=== PATIENT | female | born 1995 | race Caucasian/White ===

== ENCOUNTER 2020-10-14 13:51 | Outpatient (CLI) | payer OTHER, SELFPAY ==
--- NOTE | ~2020-10-14 | US_ITS ---
EXAMINATION: US OB <= 14 weeks fetus DATE: 10/14/2020 14:24 INDICATION: First trimester dating TECHNIQUE: Real-time pelvic transabdominal ultrasound was performed. COMPARISON: None. FINDINGS: The uterus measures 7.9 x 6.1 x 6.4 cm. There is an intrauterine gestational sac. A yolk s ac is identified. heart motion is identified measuring 184 beats per minute (bpm) by M-mode Dop pler. The crown rump length measures 2.2 cm , which correlates with an estimated gestational ag e of 8 weeks and 6 day(s) (+/-) 6 day(s). The left ovary is not visualized however no left adnexal abnormality is seen. The right ovary measure s 3.9 x 2.9 x 3.4 cm. There is normal vascular flow in the right ovary. There is no free fluid in the pelvis. IMPRESSION: 1. Live intrauterine with an estimated gestational age of 8 weeks and 6 day(s) (+/-) 6 day( s) and an estimated delivery date of 05/20/2021. Reviewed, dictated and finalized at location A. IMPRESSION: 1. Live intrauterine with an estimated gestational age of 8 weeks and 6 day(s) (+/-) 6 day(s) and an estimated delivery date of 05/20/2021.
== END 2020-10-14 13:52 | disposition home or self-care (01) ==
PROVIDERS: Visit Provider Obstetrics & Gynecology
DX: Z34.91 Encounter for supervision of normal pregnancy, unspecified, first trimester (principal); Z3A.01 Less than 8 weeks gestation of pregnancy
CPT/HCPCS: 76801

== ENCOUNTER 2020-10-28 18:04 | Emergency (ER) | payer OTHER, SELFPAY ==
--- NOTE | 2020-10-28 18:25 | PC.NURSE ---
1821- witnessed pt leaving the waiting room, walking fast, steady gait . Pt stated I can't wait, I'm going somewhere else pt able to speak in full sentence with out difficulty.
== END 2020-10-29 04:48 | disposition left against medical advice (07) ==
LOC: ANHED 19:02
DX: Z53.21 Procedure and treatment not carried out due to patient leaving prior to being seen by health care provider (principal)
CPT/HCPCS: 99199

== ENCOUNTER 2021-05-12 08:56 | Observation (INO) | payer OTHER, SELFPAY ==
[2021-05-12] MEDS: ONDANSETRON HCL ODT 4 MG TABLET PO (11:40)
--- NOTE | 2021-06-08 21:27 | PM.OBTRLD ---
OB - Triage/Final Diagnosis Visit Information Comments/Additional reasons for admission: I have assessed the risk for this patient, Geoffrey Pereira, and determined that she would benefit from observation care. Final Diagnosis (1) False labor: Code(s): O47.9 - False labor, unspecified Status: Acute
== END 2021-05-12 11:40 | disposition home or self-care (01) ==
PROVIDERS: Admitting Provider Obstetrics & Gynecology; Visit Provider Obstetrics & Gynecology
DX: O47.1 False labor at or after 37 completed weeks of gestation (principal); Z3A.38 38 weeks gestation of pregnancy
CPT/HCPCS: A9270; G0378; G0379

== ENCOUNTER 2021-05-13 06:40 | Inpatient (IN) | payer OTHER, SELFPAY ==
[2021-05-13] VITALS (83 sets, daily range): BP systolic 70–132; BP diastolic 46–109; PULSE 28–187; RESP 18; TEMP 36.4–36.9; O2SAT 76–100; BMI 21.4
--- OUTSIDE RECORDS SUMMARY | 2021-05-13 06:47 | XMS_ITS | Encounter Summary ---
:1995 Author Reason for Visit None recorded. Assessment and Plan 1. growth restriction ? non-stress test Discussion Note: None recorded.Patient educational handouts: No information available. Plan of Care Reminders Provider Appointments None ? ? recorded. Lab None ? ? recorded. Referral None ? ? recorded. Procedures None ? ? recorded. Surgeries None ? ? recorded. Imaging 04/26/2021 [place] Non-stress Test Medications Name Start Date ? ? aspirin 81 mg tablet,delayed release ? buspirone 10 mg tablet ? Take 1 tablet twice a day by oral route. escitalopram 20 mg tablet ? Take 1 tablet every day by oral route. folic acid 1 mg tablet ? levothyroxine 112 mcg tablet ? Take 1 tablet every day by oral route. M- Plus 27 mg iron-1 mg tablet ? Nighttime Sleep-Aid (doxylamine) 25 mg tablet ? ondansetron HCl 4 mg tablet ? Vitamin B-6 25 mg tablet ? Medications Administered None recorded. Vitals None recorded. Results Lab Results None recorded. Allergies Code Code System Name Reaction Severity Onset NKDA ?
--- OUTSIDE RECORDS SUMMARY | 2021-05-13 06:47 | XMS_ITS | Encounter Summary ---
:1995 Author Reason for Visit OB visit Assessment and Plan Assessment Note Patient is ___weeks . Discu ssed plan. 1. growth restriction Discussion Note: None recorded.Patient educational handouts: No information available. Plan of Care Reminders Provider Appointments None ? ? recorded. Lab None ? ? recorded. Referral None ? ? recorded. Procedures None ? ? recorded. Surgeries None ? ? recorded. Imaging None ? ? recorded. Medications Name Start Date ? ? aspirin [...] tablet ? Medications Administered None recorded. Vitals Height Weight BMI Blood Pressure 5 ft 6 in 135 lbs 21.8 kg/m2 109/74 mm[Hg] Results Lab Results None recorded. Allergies
--- OUTSIDE RECORDS SUMMARY | 2021-05-13 06:47 | XMS_ITS | Encounter Summary ---
:1995 Author Reason for Visit None recorded. Assessment and Plan 1. Small for gestational age fet us ? non-stress test Discussion Note: None recorded.Patient educational handouts: No information available. Plan of Care Reminders Provider Appointments None ? ? recorded. Lab None ? ? recorded. Referral None ? ? recorded. Procedures None ? ? recorded. Surgeries None ? ? recorded. Imaging 05/10/2021 [place] Non-stress Test Medications Name Start Date ? [...]
--- OUTSIDE RECORDS SUMMARY | 2021-05-13 06:47 | XMS_ITS ---
:1995 Author Care Team Providers Name Role Phone Ranjana Laurent Primary Care Provider Unavailable Allergies Code Code System Name Reaction Severity Status Onset Adhesive Tape ? ? Active ? Notes: Dial Soap Medications Name Status Start Date Stop Date ? ? aspirin 81 mg tablet,delayed release Active ? Not available buspirone 10 mg tablet Active ? Not avail able buspirone 15 mg tablet Completed ? TAKE 1 TABLET BY MOUTH TWICE A DAY cyanocobalamin (vit B-12) 1,000 mcg/mL injection solution Active ? Not available Inject 1 mL every month by subcutaneous route. escitalopram 20 mg tablet Active ? Not av ailable folic acid 1 mg tablet Active ? Not avail able levothyroxine 112 mcg tablet Active ? Not available metoclopramide 5 mg tablet Active ? Not a vailable metronidazole 0.75 % vaginal gel Completed ? 11/19/2020 Nighttime Sleep-Aid (doxylamine) 25 mg tablet Active ? Not available TAKE 1 TABLET BY MOUTH AT BEDTIME ondansetron HCl 4 mg tablet Active ? Not available Vitamin tablet Completed ? 10/22/19 21 Take 1 tablet every day by oral route as directed for 90 days. Vitamins Plus Low Iron 27 mg Active ? Not available iron-1 mg tablet progesterone micronized 200 mg capsule Active ? Not available sertraline 100 mg tablet Completed ? 021 TAKE 1 TABLET BY MOUTH ONCE DAILY FOR 30 DAYS
--- OUTSIDE RECORDS SUMMARY | 2021-05-13 06:47 | XMS_ITS | Encounter Summary ---
:1995 Author Reason for Visit NST [id number] EDC 05/20/21 LMP 09/08/2020 Assessment and Plan 1. growth restriction ? non-stress test Discussion Note: None recorded.Patient educational handouts: No information available. Plan of Care Reminders Provider Appointments None ? ? recorded. Lab None ? ? recorded. Referral None ? ? recorded. Procedures None ? ? recorded. Surgeries None ? ? recorded. Imaging 05/03/2021 [place] Non-stress Test Medications Name Start Date ? ? aspirin 81 mg tablet,delayed release ? buspirone 10 mg tablet ? Take 1 tablet twice a day by oral route. escitalopram 20 mg tablet ? Take 1 tablet every day by oral route. folic acid 1 mg tablet ? levothyroxine 112 mcg tablet ? Take 1 tablet every day by oral route. M-[place] Plus 27 mg iron-1 mg tablet ? Nighttime Sleep-Aid (doxylamine) 25 mg tablet ? ondansetron HCl 4 mg tablet ? Vitamin B-6 25 mg tablet ? Medications Administered None recorded. Vitals None recorded. Results Lab Results None recorded. Allergies Code Code System Name Reaction Severity Onset
--- OUTSIDE RECORDS SUMMARY | 2021-05-13 06:47 | XMS_ITS | Encounter Summary ---
[...] recorded. Surgeries None ? ? recorded. Imaging 04/22/2021 [place] Non-stress Test Medications Name Start Date ? [...]
--- OUTSIDE RECORDS SUMMARY | 2021-05-13 06:47 | XMS_ITS | Encounter Summary ---
:1995 Author Reason for Visit OB visit Assessment and Plan Assessment Note Patient is ___weeks . Discu ssed plan. 1. Routine care Discussion Note: None recorded.Patient educational handouts: No [...] ft 6 in 135 lbs 21.8 kg/m2 111/78 mm[Hg] Results Lab Results None recorded. Allergies
--- OUTSIDE RECORDS SUMMARY | 2021-05-13 06:47 | XMS_ITS | Encounter Summary ---
[...] BMI Blood Pressure 5 ft 6 in 136 lbs 22 kg/m2 108/73 mm[Hg] Results Lab Results None recorded. Allergies
--- OUTSIDE RECORDS SUMMARY | 2021-05-13 06:47 | XMS_ITS | Encounter Summary ---
:1995 Author Reason for Visit None recorded. Assessment and Plan 1. Poor growth affecting m anagement ? US, obstetric, biophysical profile + non-stress test ? US, doppler, umbilic al artery velocimetry Discussion Note: None recorded.Patient educational handouts: No information available. Plan of Care Reminders Provider Appointments None recorded. ? ? Lab None recorded. ? ? Referral None recorded. ? ? Procedures None recorded. ? ? Surgeries None recorded. ? ? Imaging US, Obstetric, [facility] Biophysical Profile + 04/22/2021 Non-stress Test ? US, Doppler, Sheryl ziyad Umbilical Artery 04/22/2021 Velocimetry Medications Name Start Date ? ? aspirin [...] HCl 4 mg tablet ? Vitamin B-6 2
--- OUTSIDE RECORDS SUMMARY | 2021-05-13 06:47 | XMS_ITS | Encounter Summary ---
[...] BMI Blood Pressure 5 ft 6 in 137 lbs 22.1 kg/m2 107/75 mm[Hg] Results Lab Results None recorded. Allergies
--- OUTSIDE RECORDS SUMMARY | 2021-05-13 06:47 | XMS_ITS ---
:1995 Author Care Team Providers Name Role Phone Shashi Coelho Primary Care Provider Unavailable Allergies Code Code System Name Reaction Severity Status Onset NKDA ? Medications Name Status Start Date Stop Date ? ? aspirin 81 mg tablet,delayed Active ? Not available release buspirone 10 mg tablet Active ? Not avail able buspirone 15 mg tablet Completed ? buspirone 5 mg tablet Completed ? 04/01/2021 Take 1 tablet twice a day by oral route. Celexa 20 mg tablet Completed 11/23/2018 03/29/2019 take 1 tablet by oral route every day escitalopram 10 mg tablet Completed 11/23/20182019 take 1 tablet by oral route every day escitalopram 20 mg tablet Active ? Not av ailable folic acid 1 mg tablet Active ? Not avail able levothyroxine 112 mcg tablet Active ? Not available levothyroxine 200 mcg tablet Completed ? Take 1 tablet every day by oral route. M-[place] Plus 27 mg iron-1 mg Active ? Not available tablet Macrobid 100 mg capsule Completed 09/27/2018 03/29/19 take 1 capsule by oral route every 24 hours with food metoclopramide 5 mg tablet Completed ? 04/01 metronidazole 0.75 % vaginal gel Completed ? 04/01/2021 Nexplanon 68 mg subdermal Completed ? 2020 implant Nighttime Sleep-Aid (doxylamine) Active ? Not available
--- OUTSIDE RECORDS SUMMARY | 2021-05-13 06:48 | XMS_ITS | Encounter Summary ---
:1995 Author Reason for Visit None recorded. Assessment and Plan 1. Uterine size for dates discre pancy ? US, obstetric, follow-up ? US, obstetric, biophysical profile ? US, doppler, umbilic al artery velocimetry Discussion Note: None recorded.Patient educational handouts: No information available. Plan of Care Reminders Provider Appointments None recorded. ? ? Lab None recorded. ? ? Referral None recorded. ? ? Procedures None recorded. ? ? Surgeries None recorded. ? ? Imaging US, Obstetric, [facility]ios Follow-up 03/24/2021 ? US, Obstetric, [facility] Biophysical Profile 03/24/2021 ? US, Doppler, Sheryl lackey Umbilical Artery 03/24/2021 Velocimetry Medications Name Start Date ? ? aspirin 81 mg tablet,delayed release ? buspirone 10 mg tablet ? Take 1 tablet twice a day by oral route. escitalopram 20 mg tablet ? Take 1 tablet every day by oral route. folic acid 1 mg tablet ? levothyroxine 112 mcg tablet ?
--- OUTSIDE RECORDS SUMMARY | 2021-05-13 06:48 | XMS_ITS | Encounter Summary ---
:1995 Author Reason for Visit None recorded. Assessment and Plan 1. Ariela thyroiditis ? non-stress test 2. Routine care Discussion Note: None recorded.Patient educational handouts: No information available. Plan of Care Reminders Provider Appointments None ? ? recorded. Lab None ? ? recorded. Referral None ? ? recorded. Procedures None ? ? recorded. Surgeries None ? ? recorded. Imaging 04/09/2021 [place] Non-stress Test Medications Name Start Date ? [...]
--- OUTSIDE RECORDS SUMMARY | 2021-05-13 06:48 | XMS_ITS | Encounter Summary ---
:1995 Author Reason for Visit OB visit 33wks Assessment and Plan 1. Routine care Discussion Note: None recorded.Patient [...] ft 6 in 136 lbs 22 kg/m2 103/72 mm[Hg] Results Lab Results None recorded. Allergies Code Code System Name Reaction Severity Onset
--- OUTSIDE RECORDS SUMMARY | 2021-05-13 06:48 | XMS_ITS | Encounter Summary ---
:1995 Author Reason for Visit None recorded. Assessment and Plan 1. Small for gestational age fet us ? US, obstetric, biophysical profile + non-stress test Discussion Note: None recorded.Patient educational handouts: No information available. Plan of Care Reminders Provider Appointments None recorded. ? ? Lab None recorded. ? ? Referral None recorded. ? ? Procedures None recorded. ? ? Surgeries None recorded. ? ? Imaging US, Obstetric, [facility] Biophysical Profile + 04/09/2021 Non-stress Test Medications Name Start Date ? [...]
--- OUTSIDE RECORDS SUMMARY | 2021-05-13 06:48 | XMS_ITS | Encounter Summary ---
:1995 Author Reason for Visit new OB Assessment and Plan 1. Hypothyroidism ? levothyroxine 112 mcg tabl et 2. Mixed anxiety and depressive disorder ? escitalopram 20 mg tablet ? buspirone 10 mg tablet 3. Routine care 4. High risk Discussion Note: None recorded.Patient educational handouts: No [...] ? Medications Administered None recorded. Vitals Height We
--- OUTSIDE RECORDS SUMMARY | 2021-05-13 06:48 | XMS_ITS | Encounter Summary ---
[...] BMI Blood Pressure 5 ft 6 in 133 lbs 21.5 kg/m2 114/64 mm[Hg] Results Lab Results None recorded. Allergies
--- NOTE | 2021-05-13 06:50 | LDADM ---
This patient, Geoffrey Pereira, was admitted to Labor/Delivery/Recovery 102 on 05/13/21 at 06:40. Plans for labor, pain management and were discussed with patient. Patient/family oriented to hospital policies and general routines including ID bracelet, bed and alarms, visiting hours, pain management, procedures, bathroom and other care routines, personal items, smoking policy, room service/diet and guest tray routines, security routines, and visiting hours. Patient/Family are encouraged to report perceived risks to care and to ask questions if they do not understand what they are told or what they should do. See OBIX for further documentation.
[2021-05-13 07:24] LABS: Basophils Percent Auto 0.4 % (0.2-1.2); Eosinophils Percent Auto 0.1 % (0-4.4); Hematocrit 34.3 % (37.0-47.0); Hemoglobin 11.5 g/dL (12.0-15.0); Immature Granulocyte Absolute 0.11 K/mm3 (0.00-0.031); Immature Granulocyte Percent A 1.4 % (0-0.5); Lymphocytes Absolute Auto 1.34 K/mm3 (0.9-3.2); Lymphocytes Percent Auto 17.7 % (18.3-44.2); Mean Corpuscular HGB Conc 33.5 g/dl (32-36); Mean Corpuscular Hemoglobin 31.7 pg (26-34); Mean Corpuscular Volume 94.5 fl (80-100); Mean Platelet Volume 10.9 fl (7.4-10.4); Monocytes Absolute Auto 0.7 K/mm3 (0.1-0.6); Monocytes Percent Auto 8.7 % (2.6-8.5); Neutrophils Absolute Auto 5.4 K/mm3 (1.3-6.7); Neutrophils Percent Auto 71.7 % (45.5-73.1); Platelet Count Result 214 k/mm3 (150-375); Red Blood Count 3.63 M/mm3 (4.2-5.4); Red Cell Distribution Width 12.9 % (11.5-14.5); White Blood Count 7.6 K/mm3 (4.5-10.0)
[2021-05-13] MEDS: LACTATED RINGERS 1,000 ML 125 ML IV CONT ×2 (07:31→10:26)
[2021-05-13] MEDS: OXYTOCIN 30 UNITS/NS 500 ML 30 UNITS/500 ML BAG IV CONT (07:32)
--- NOTE | 2021-05-13 07:46 | WPDHPUPDATE1 ---
History and Physical Update Update Date/Time: 05/13/21 07:46 AROM - meconium stained fluid, Pitocin and efm, reassuring FHT's History and Physical has been reviewed, including an updated exam of the patient. There are NO changes in the patient's condition. Risks, benefits, and alternatives have been discussed and questions answered. Patient agrees to proceed with procedure.
[2021-05-13] MEDS: fentaNYL CITRATE INJ (*CRX) 100 MCG/2 ML VIAL 50 MCG IV PUSH ×2 (08:57→10:02)
--- NOTE | 2021-05-13 10:12 | WPDANESEPP ---
Anes - Eval Pre Procedure Procedure: labor epidural Date/Time: 05/13/21 10:12 Surgeon: mark Preop Diagnosis: pain during labor Pre Op Diagnosis: IOL Patient Data Age: 26 Gender: F Height: Weight: Last Vital Signs Temp 36.9 C 05/13/21 08:50 Pulse 55 L 05/13/21 09:31 BP 106/73 05/13/21 09:31 Allergies Allergy/AdvReac Type Severity Reaction Status Date / Time DIAL SOAP AdvReac Intermediate RASH,BLISTE Uncoded 05/11/21 12:35 RS Laboratory Tests 05/13/21 05/13/21 05/13/21 07:18 07:19 07:19 WBC 7.6 K/mm3 K/mm3 (4.5-10.0) RBC 3.63 M/mm3 L M/mm3 (4.2-5.4) Hgb 11.5 g/dL L g/dL (12.0-15.0) Hct 34.3 % L % (37.0-47.0) MCV 94.5 fl fl (80-100) MCH 31.7 pg pg (26-34) MCHC 33.5 g/dl g/dl (32-36) RDW 12.9 % % (11.5-14.5) Plt Count 214 k/mm3 k/mm3 (150-375) MPV 10.9 fl H fl (7.4-10.4) Immature Gran % (Auto) 1.4 % H % (0-0.5) Neut % (Auto) 71.7 % % (45.5-73.1) Lymph % (Auto) 17.7 % L % (18.3-44.2) [place] % (Auto) 8.7 % H % (2.6-8.5) Eos % (Auto) 0.1 % % (0-4.4) Baso % (Auto) 0.4 % % (0.2-1.2) Lymph # (Auto) 1.34 K/mm3 K/mm3 (0.9-3.2) [place] # (Auto) 0.7 K/mm3 H K/mm3 (0.1-0.6) Eos # (Auto) 0.0 K/mm3 K/mm3 (0-0.3) Baso # (Auto) 0.0 K/mm3 K/mm3 (0.0-0.1) Abs Immat Gran (auto) 0.11 K/mm3 H K/mm3 (0.00-0.031) Absolute Neuts (auto) 5.4 K/mm3 K/mm3 (1.3-6.7) Absolute Nucleated RBC 0.0 K/mm3 K/mm3 (0.0-0.012) Nucleated RBC % 0.0 % % (0.0-0.2) RPR Pending Blood Type A Positive Antibody Screen Negative Patient hx anesthesia problems: none Family hx anesthesia problems: none Results Review: All pre-operative results and documents have been reviewed as part of the pre-operative evaluation. [facility] Past Medical History Medical History (Updated 05/13/21 @ 10:13 by Patti Contreras CRNA) IUP (intrauterine ), incidental Family History Family History Sibling Chronic ear infection ADHD Epilepsy Grandparent Diabetes mellitus Hypertension FH: CABG (coronary artery bypass surgery) Sibling ADHD Cognitive disorder Bipolar disorder Mother Heart murmur Epilepsy Father Epilepsy Social History Social History Smoking status: Current every day smoker Tobacco type: e-cigarettes/vaping Substance use: current Last use: last time 05/11/21 Spiritual care concerns: No Exam Day of Procedure 05/13/21 10:12
[2021-05-13 11:40] LABS: Rapid Plasma Reagin Non-Reactive (NonReactive)
[2021-05-13 12:01] LABS: Amphetamine Screen Urine Negative (Negative); Barbiturate Screen Urine Negative (Negative); Benzodiazepines Screen Urine Negative (Negative); Cannabinoid Screen Urine Positive (Negative); Cocaine Screen Urine Negative (Negative); Methadone Screen Urine Negative (Negative); Opiate Screen Urine Negative (Negative); Phencyclidine Screen Urine Negative (Negative)
[2021-05-13] MEDS: ONDANSETRON INJ 4 MG/2 ML VIAL IV PUSH (12:57)
--- NOTE | 2021-05-13 13:42 | P.PCNOB_ITS ---
OB - Delivery Note Procedure Delivery date: 05/13/21 Procedure: Induction method: AROM and Per Pitocin Protocol Delivery monitor: External FHT and Internal Uterine Route of delivery: Laceration Description: None Specimen: Yes Quantitative Blood Loss (ml): 59 Anesthesia type: Epidural [place] Baby Date of : 05/13/21 Time of : 13:33 Weeks of gestation at delivery: 39 score one minute: 8 score ten minutes: 9
[2021-05-13] MEDS: BENZOCAINE 20% AER SPR (*SP) 56 GM CAN 1 SPRAY TOPICAL (17:45)
[2021-05-13] MEDS: WITCH HAZEL 40 PADS 1 PAD TOPICAL (17:45)
--- NOTE | 2021-05-13 18:30 | OBPPTRN ---
1800-Patient transferred to post room #282 via wheelchair. Support person present. Oriented to unit, room, information board, rooming in, admission packet and security measures. Patient verbalizes understanding.
[2021-05-14] VITALS: BP 99/69; PULSE 50; RESP 18; TEMP 36.6; O2SAT 99
[2021-05-14 03:30] VITALS: BP 111/82; PULSE 53; RESP 14; TEMP 36.9
[2021-05-14] MEDS: IBUPROFEN 600 MG TABLET PO ×2 (03:43→15:30)
[2021-05-14 04:01] LABS: Hematocrit 37.5 % (37.0-47.0); Hemoglobin 12.4 g/dL (12.0-15.0)
--- NOTE | 2021-05-14 07:19 | P.PNOB_ITS ---
OB - PN: Subj Subjective Date/time seen: 05/14/21 07:19 Patient comments: no complaints and pain well controlled OB - PN: Obj Data Labs CBC & Chem 7: 05/14/21 03:45 Labs: Laboratory Results - last 24 hr 05/13/21 05/13/21 05/13/21 07:18 07:19 07:19 WBC 7.6 RBC 3.63 L Hgb 11.5 L Hct 34.3 L MCV 94.5 MCH 31.7 MCHC 33.5 RDW 12.9 Plt Count 214 MPV 10.9 H Immature Gran % (Auto) 1.4 H Neut % (Auto) 71.7 Lymph % (Auto) 17.7 L [place] % (Auto) 8.7 H Eos % (Auto) 0.1 Baso % (Auto) 0.4 Lymph # (Auto) 1.34 [place] # (Auto) 0.7 H Eos # (Auto) 0.0 Baso # (Auto) 0.0 Abs Immat Gran (auto) 0.11 H Absolute Neuts (auto) 5.4 Absolute Nucleated RBC 0.0 Nucleated RBC % 0.0 Urine Opiates Screen Urine Methadone Screen Ur Barbiturates Screen Ur Phencyclidine Scrn Ur Amphetamine Screen U Benzodiazepines Scrn Urine Cocaine Screen U Cannabinoids Screen RPR Non-reactive Blood Type A Positive Antibody Screen Negative 05/13/21 05/14/21 11:19 03:45 WBC RBC Hgb 12.4 Hct 37.5 MCV MCH MCHC RDW Plt Count MPV Immature Gran % (Auto) Neut % (Auto) Lymph % (Auto) [place] % (Auto) Eos % (Auto) Baso % (Auto) Lymph # (Auto) [place] # (Auto) Eos # (Auto) Baso # (Auto) Abs Immat Gran (auto) Absolute Neuts (auto) Absolute Nucleated RBC Nucleated RBC % Urine Opiates Screen Negative Urine Methadone Screen Negative Ur Barbiturates Screen Negative Ur Phencyclidine Scrn Negative Ur Amphetamine Screen Negative U Benzodiazepines Scrn Negative Urine Cocaine Screen Negative U Cannabinoids Screen Positive A RPR Blood Type Antibody Screen OB - PN A/P Plan day: 1 Plan: routine care Time Spent With Patient Time: Total time spent is greater than 50% in coordination of care (as documented) at patient's floor/unit and/or counseling patient: Review of Systems Review of Systems: All systems reviewed & are unremarkable except as noted in HPI and below Exam Const: General: cooperative, healthy appearing and comfortable
[2021-05-14 07:45] VITALS: BP 103/71; PULSE 57; RESP 18; TEMP 36.7; O2SAT 100
[2021-05-14 08:00] VITALS: PULSE 57; RESP 18; O2SAT 100
[2021-05-14] MEDS: MULTIVIT/MIN/PREN/FOL AC/IRON TABLET 1 TAB PO (09:45)
[2021-05-14 11:57] VITALS: BP 105/70; PULSE 55; RESP 14; TEMP 36.1; O2SAT 99
--- NOTE | 2021-05-14 12:52 | PC.NURSE ---
0800 -Introductions were made and patient consulted to assess needs related to . Mother led conversation with her experience with feeding baby so far. Mother works well with her and states that infant was supplemented with formula related to a low blood sugar and mom desires to pump and feed. Mother desires to breastfeed while at the hospital. Reviewed good handwashing when working with infant, breast, nipples and how to protect the nipples with a deep latch. Encouraged understanding the benefits of skin to skin, responding to feeding cues, frequencies of feeding 8-12 times in 24 hours (approximately 2-3 hours), duration of feedings, milk production, intake/output feeding sheet and signs of adequate intake. Discussed stimulating infant with skin to skin, hand expressing colostrum, touch and talking to to encourage eating at the breast. Reviewed positioning and alignment, supporting breast, off-centered (asymmetrical latch) and leading with the chin with big open wide gape. 0830 - Blood sugar was checked at 51 and reported to primary RN, then was taken for doctor assessment in the nursery. 0845 - Infant latched optimally to the left breast in cross cradle position for 7 min, then detaches and nipple is not misshaped. After a few min of skin to skin vertically between mother's breast demonstrated feeding cues and was lowered to the right breast using cross cradle positioning. Education given to mother of how to visualize suck/swallow ratios and drinking at the breast. Infant was able to maintain lath without discomfort to mother. Nipple care, comfort and healing with warm, wet washcloth to rinse breast and leave to air-dry. Colostrum may be left on nipples to dry but have clean hands when touching the nipple/breast. Resources used to facilitate learning were used from the visual handout/ tool/mom and baby guide. Mother voiced understanding responding to feeding cues, may need to stimulating infant approximately 2-3 hours from the start of the last feeding, calling for assistance if the infant does not latch or there discomfort . Reported to primary RN.
[2021-05-14 19:40] VITALS: BP 123/86; PULSE 54; RESP 16; TEMP 36.6
[2021-05-15 07:15] VITALS: BP 111/68; PULSE 55; RESP 16; TEMP 36.2; O2SAT 100
[2021-05-15] MEDS: MULTIVIT/MIN/PREN/FOL AC/IRON TABLET 1 TAB PO (07:21)
[2021-05-15] MEDS: IBUPROFEN 600 MG TABLET PO (07:21)
[2021-05-15] MEDS: TETANUS,DIPHTHERIA,AC PERTUSSIS ADULT (0.5 ML) BOOSTRIX IM (07:29)
--- NOTE | 2021-05-15 12:27 | P.PNOB_ITS ---
[employer]ER - A/P Time Spent With Patient Time: Total time spent is greater than 50% in coordination of care (as documente d) at patient's floor/unit and/or counseling patient: Time with patient: less than 15 minutes [employer]ER- PN:Kaleb Post-Op Subjective Date/time seen: 05/15/21 12:27 Exam Const: General: comfortable, no acute distress and alert Resp: Effort & Inspection: normal respiratory effort Auscultation: no crackles, no rales and no rhonchi Cardio: Rate: regular rate Heart sounds: no click, no murmurs and no rubs GI: Inspection: non-distended GI Palp: No Tenderness to palpation present (GI) Auscultation: normal bowel sounds Other: Incision - CDI Extrem: General: normal to inspection, no pedal edema and no calf tenderness [employer]ICER - PN: Obj Data Vital Signs Vital Signs: Vital Signs - 24 hr 05/14/21 19:40 05/15/21 07:15 Temperature 97.9 F 97.2 F L Pulse Rate 54 L 55 L Respiratory Rate 16 16 Blood Pressure 123/86 111/68 Pulse Oximetry 100 Intake/Output Intake/Output: Intake & Output 05/12/21 05/13/21 05/14/21 05/15/21 23:59 23:59 23:59 23:59 Intake Total 2000 480 Output Total 163 Balance 1837 480 Meds/Results Medications: Active Medications Generic Name Dose Route Start Last Admin Trade Name Freq PRN Reason Stop Dose Admin Acetaminophen 650 mg 05/13/21 14:05 Acetaminophen 325 Mg Tablet PO Q6H PRN Mild Pain (1-3) or Headache Benzocaine 1 spray 05/13/21 14:05 05/13/21 17:45 Benzocaine 20% Aer Spr (*Sp) 56 Gm Can TOPICAL 1 spray PRN PRN Administration Perineal Discomfort Dibucaine 1 applic 05/13/21 14:05 Dibucaine 1% Ointment 30 Gm Tube TOPICAL PRN PRN Hemorrhoids Docusate Sodium 100 mg 05/13/21 14:05 Docusate Sodium 100 Mg Capsule PO BID PRN Constipation Emollient Ointment 1 applic 05/13/21 14:05 Lanolin (Lansinoh) 7.5 Gm Cream TOPICAL PRN PRN Sore Nipples Oxytocin/Sodium Chloride 30 units in 500 mls @ 125 mls/hr 05/13/21 06:47 Oxytocin 30 Units/Ns 500 Ml IV CONT .Q4H PRN if not received in labor Ibuprofen 600 mg 05/13/21 14:05 05/15/21 07:21 Ibuprofen 600 Mg Tablet PO 600 mg Q6H PRN Administration Cramping Ondansetron HCl 4 mg 05/13/21 14:05 Ondansetron Inj 4 Mg/2 Ml Vial IV PUSH Q6H PRN Nausea Vit/Calcium/Iron/Folic Ac 1 tab 05/14/21 09:00 05/15/21 07:21 Multivit/Min/Pren/Fol Ac/Iron Tablet PO 1 tab DAILY EDDI Administration Simethicone 80 mg 05/13/21 14:05 Simethicone 80 Mg Tab.Chew PO Q2H PRN Gas Witch Danielle 1 pad 05/13/21 14:05 05/13/21 17:45 Witch Danielle 40 Pads TOPICAL 1 pad PRN PRN Administration Perineal Discomfort Zolpidem Tartrate 5 mg 05/13/21 14:05 Zolpidem Tartrate (*Crx) 5 Mg Tablet PO HS PRN Insomnia Labs CBC & Chem 7: 05/14/21 03:45
--- NOTE | 2021-05-15 12:33 | PM.OBDSVD ---
DS: Admitting Diagnosis Discharge Date 05/14/21 Admitting Diagnosis term gestation DS: Discharge Diagnosis Discharge Diagnosis (1) IUP (intrauterine ), incidental: Code(s): Z33.1 - state, incidental Status: Acute (2) Term delivered: Code(s): O80 - Encounter for full-term uncomplicated delivery Status: Acute OB - DS: Summary OB Procedures : None OB Procedures Intrapartum: Spontaneous Vag Delivery OB Procedures: : None Peripartum Data Infant Delivery Method: Natural Vaginal complications: none Status at Discharge Functional status at discharge: independent ambulation Time Spent with Patient Time attestation: Total time spent providing and/or coordinating discharge services: DS: Data Data Completed and Pending Pending studies at discharge: Pending at discharge 05/13/21 13:37 Surgical [PTH] Routine Discharge Plan Discharge Discharging Clinician: Semaj Coelho Patient Disposition: Home, Self-Care Activity: pelvic rest Diet: regular Patient Instructions: Antibiotic Form Stand Alone Forms: General Discharge Information Follow-up/Referrals: Semaj Coelho MD [Physician] - Discharge Medications: Continued levothyroxine 112 mcg tablet 112 mcg PO DAILY RF: 0 Vitamin Plus Low Iron 27 mg iron- 1 mg tablet 1 tablet PO DAILY RF: 0 Date of admission: 05/13/21 06:40 Primary Care Provider: PHYSICIAN,DERRICK OPERATOR Admitting Provider: Semaj Coelho Attending physician on admission: Semaj Coelho Condition: Stable
--- NOTE | 2021-05-15 12:37 | PCCCNOTE ---
Care Coordination met with pt. and FOB this morning to discuss discharge planning. Pt.'s current D/C plan is to return home with her daughter and FOB. Pt. states this is her 3rd child. Pt.'s oldest child lives with her and her middle child lives with her father. Pt. is working on obtaining custody of her middle child. Pt. states that they have everything needed to safely bring baby home, including a car seat and crib. Pt. is not current with [facility] but states she will initiate process. Pt. will continue to breast feed at time of D/C. Pt. states she has no open DCFS cases at this time and does not have a boom man. Pt. did test positive for Marijuana at time of admission, baby was not tested. Pt. states she used Marijuana to assist with her symptoms and will no longer be using the drug. Pt. has no D/C needs or concerns at this time. No further need for CC services.
[2021-05-17 08:16] VITALS: BP 105/60; PULSE 65; RESP 20; TEMP 36.6; O2SAT 100
== END 2021-05-15 13:53 | disposition home or self-care (01) | DRG 560 ==
LOC: ANHLDR 06:45 → ANHOB2 18:29
PROVIDERS: Admitting Provider Obstetrics & Gynecology; Visit Provider Obstetrics & Gynecology
DX: O77.0 Labor and delivery complicated by meconium in amniotic fluid (principal); Z37.0 Single live birth; Z3A.39 39 weeks gestation of pregnancy; O36.8330 Maternal care for abnormalities of the fetal heart rate or rhythm, third trimester, not applicable or unspecified; Z23 Encounter for immunization
CPT/HCPCS: 36415; 80307; 85014; 85018; 85025; 86592; 86850; 86900; 86901; 88307; 90471; 90653; 90715; A9270; G0008; J2405; J2590; J2795; J3010; J7120